=== PATIENT | female | born 1965 | race Caucasian/White ===

== ENCOUNTER 2019-09-17 15:04 | Emergency (ER) | payer BC ==
[2019-09-17] MEDS ORDERED: Ondansetron 4 MG Tab.DIS PO ONE (15:32)
--- NOTE | 2019-09-17 15:32 | EDM.PDOC ---
ED HPI GENERAL MEDICAL PROBLEM - General Stated Complaint: CHEST PAIN Time Seen by Provider: 09/17/19 15:04 Source of Information: Reports: Patient History Limitations: Reports: No Limitations - History of Present Illness INITIAL COMMENTS - FREE TEXT/NARRATIVE: Pt. presents to ER with complaints of pain beneath her L breast. She states that the discomfort started approx. 30 min prior to coming to ER. Pt. states that she went to the clinic because she was feeling clammy, slightly chilled, lightheaded, and nauseated throughout the day today. Pt. states that the discomfort feels "sharp". It is worse with palpation, and nursing noted that her L chest area was exquisitely tender when the EKG was being performed. Pt. denies any exertion. No cough. Denies any fever or chills. Pt. was doing paperwork at the onset of the discomfort. Pt. has not history of CAD. She does have a history of hypertension. She also has a history of RA. Pt. states that she has never experienced pain like this in the past. Pt. states that she also has some pain in her upper arm, but has some history of this. Constant discomfort had resolved on arrival to ER, but pain was reproducible. Onset: Today Location: Reports: Chest, Upper Extremity, Left, Generalized Quality: Reports: Ache, Sharp, Stabbing Improves with: Reports: Rest Worsens with: Reports: Movement - Related Data Allergies Allergy/AdvReac Type Severity Reaction Status Date / Time codeine Allergy Other Verified 09/17/19 15:18 ED ROS GENERAL - Review of Systems Review Of Systems: See Below Constitutional: Reports: Chills, Diaphoresis HEENT: Reports: No Symptoms Respiratory: Reports: No Symptoms, Pleuritic Chest Pain. Denies: Shortness of Breath, Cough, Sputum Cardiovascular: Reports: Chest Pain, Lightheadedness. Denies: Dyspnea on Exertion, Edema, Palpitations, PND, Syncope Endocrine: Reports: No Symptoms GI/Abdominal: Reports: Nausea : Reports: No Symptoms Musculoskeletal: Reports: Arm Pain Skin: Reports: No Symptoms Neurological: Reports: No Symptoms Psychiatric: Reports: No Symptoms Hematologic/Lymphatic: Reports: No Symptoms Immunologic: Reports: No Symptoms ED EXAM, GENERAL - Physical Exam Exam: See Below Exam Limited By: No Limitations General Appearance: Alert, WD/WN, No Apparent Distress, Anxious Eye Exam: Bilateral Eye: EOMI, PERRL Throat/Mouth: Normal Inspection, Normal Lips, Normal Teeth, No Airway Compromise Head: Atraumatic, Normocephalic Neck: Normal Inspection, Supple, Non-Tender, Full Range of Motion Respiratory/Chest: No Respiratory Distress, Lungs Clear, Normal Breath Sounds, No Accessory Muscle Use, Chest Non-Tender Cardiovascular: Normal Peripheral Pulses, Regular Rate, Rhythm, No Edema, No JVD Peripheral Pulses: 4+: Radial (R) GI/Abdominal: Soft, Non-Tender, No Organomegaly, No Distention, No Mass (Female) Exam: Deferred Rectal (Female) Exam: Deferred Back Exam: Normal Inspection, Full Range of Motion Extremities: Normal Inspection, Normal Range of Motion, Non-Tender, No Pedal Edema, Arm Pain (resolved.) Neurological: Alert, Oriented, CN II-XII Intact, Normal Cognition, Normal Reflexes, No Motor/Sensory Deficits Psychiatric: Normal Affect, Normal Mood Skin Exam: Warm, Dry, Intact, Normal Color Lymphatic: No Adenopathy Course - Orders/Labs/Meds Orders: Active Orders 24 hr Category Date Time Status EKG Documentation Completion [RC] STAT Care 09/17/19 15:19 Active Chest 2V [CR] Stat Exams 09/17/19 15:19 Taken Labs: Laboratory Tests 09/17/19 09/17/19 09/17/19 Range/Units 15:37 15:37 15:37 WBC 7.9 (4.0-10.0) x10^3/uL RBC 4.75 (4.00-5.50) x10^6/uL Hgb 12.3 (12.0-16.0) g/dL Hct 39.4 (33.0-47.0) % MCV 82.9 (78.0-93.0) fL MCH 25.9 L (26.0-32.0) pg MCHC 31.2 L (32.0-36.0) g/dL RDW Coeff of Andrae 16.3 H (10.0-15.0) % Plt Count 425 H (130-400) x10^3/uL Neut % (Auto) 62.3 (50.0-80.0) % Lymph % (Auto) 27.0 (25.0-50.0) % [place] % (Auto) 8.4 (2.0-11.0) % Eos % (Auto) 2.0 (0.0-4.0) % Baso % (Auto) 0.3 (0.2-1.2) % PT 8.9 L (9.5-12.3) SEC INR 0.8 L (2.0-3.5) D-Dimer, Quantitative 0.55 (<=0.58) mg/LFEU Sodium 141 (136-145) mmol/L Potassium 3.7 (3.5-5.1) mmol/L Chloride 103 (98-107) mmol/L Carbon Dioxide 32 (21-32) mmol/L Anion Gap 9.7 L (10-20) mmol/L BUN 12 (7-18) mg/dL Creatinine 1.0 (0.55-1.02) mg/dL Est Cr Clr Drug Dosing TNP Estimated GFR (MDRD) 58 Glucose 69 L (74-106) mg/dL Calcium 8.2 L (8.5-10.1) mg/dL Corrected Calcium 8.36 L (8.5-10.1) mg/dL Total Bilirubin 0.8 (0.2-1.0) mg/dL AST 25 (15-37) U/L ALT 40 (14-59) U/L Alkaline Phosphatase 163 H (46-116) U/L Troponin I < 0.017 (<=0.056) ng/mL Total Protein 7.6 (6.4-8.2) g/dL Albumin 3.8 (3.4-5.0) g/dL Globulin 3.8 Albumin/Globulin Ratio 1.00 Meds: Medications Discontinued Medications Generic Name Dose Route Start Last Admin Trade Name Freq PRN Reason Stop Dose Admin Ibuprofen 600 mg 09/17/19 15:33 09/17/19 15:37 Motrin PO 09/17/19 15:34 600 mg ONETIME ONE Administration Ondansetron HCl 4 mg 09/17/19 15:32 09/17/19 15:37 Zofran Odt PO 09/17/19 15:33 4 mg ONETIME ONE Administration - Radiology Interpretation Free Text/Narrative:: chest x-ray negative Departure - Departure Time of Disposition: 16:18 Disposition: Home, Self-Care 01 Clinical Impression: Atypical chest pain - Discharge Information Instructions: Nonspecific Chest Pain, Adult, [id number] Referrals: Rochelle Joseph MD [Primary Care Provider] - Forms: ED Department Discharge Additional Instructions: The cause of the discomfort is likely secondary to your RA, such as costochondritis Prednisone 40mg once daily For your nausea, zofran ODT 4mg every 6-8 hours as needed. Recheck in clinic in 10-14 days, sooner if not gradually improving. - My Orders Last 24 Hours: My Active Orders 09/17/19 15:19 EKG Documentation Completion [RC] STAT Chest 2V [CR] Stat - Assessment/Plan Last 24 Hours: My Active Orders 09/17/19 15:19 EKG Documentation Completion [RC] STAT Chest 2V [CR] Stat Plan: The cause of the discomfort is likely secondary to your RA, such as costochondritis Prednisone 40mg once daily For your nausea, zofran ODT 4mg every 6-8 hours as needed. Recheck in clinic in 10-14 days, sooner if not gradually improving.
[2019-09-17] MEDS ORDERED: Ibuprofen 200 MG Tab PO ONE (15:33)
[2019-09-17 16:02] LABS: ANION GAP 9.7 mmol/L (10-20); CHLORIDE,CL 103 mmol/L (98-107); SODIUM,NA 141 mmol/L (136-145)
--- NOTE | 2019-09-18 08:20 | CR ---
[id number] RAD/RAD Chest PA And Lateral EXAM: RAD Chest PA And Lateral CLINICAL DATA: SYNCOPE BRADYCARDIA COMPARISON: NO PREVIOUS SIMILAR EXAM IS AVAILABLE. FINDINGS: The lungs are clear. The cardiomediastinal contour is moderately prominent. The regional bones and soft tissues are unremarkable. IMPRESSION: NO ACUTE PROCESS. Jose Jenkins MD 09/18/19 0819 Thank you for allowing us to participate in the care of your patient.
== END 2019-09-17 16:21 | disposition home or self-care (01) ==
LOC: VM.ED 15:04
DX: R07.89 Other chest pain (principal); I10 Essential (primary) hypertension; Z88.5 Allergy status to narcotic agent
CPT/HCPCS: 36415; 71046; 80053; 84484; 85025; 85379; 85610; 93005; 99285-25; A9270-GY

== ENCOUNTER 2021-09-02 10:00 | Inpatient (IN) | payer BC ==
[2021-09-02] MEDS ORDERED: Lactated Ringers 1,000 ML IV ONE (10:39)
[2021-09-02] MEDS: Sodium Chloride 0.9% 10 ML Syringe FLUSH PRN (11:09)
[2021-09-02 11:33] LABS: PTT,PARTIAL THROMBOPLSTIN TIME 25.7 SEC (20.5-30.9)
[2021-09-02 11:46] LABS: CHLORIDE,CL 104 mmol/L (98-107); SODIUM,NA 144 mmol/L (136-145)
[2021-09-02 11:47] LABS: ANION GAP 17.9 mmol/L (5-15); ESTIMATED GFR 101 mL/min (>=60)
[2021-09-02] MEDS ORDERED: Iopamidol 612 MG/ML 100 ML Bottle IVPUSH ONE (11:50)
[2021-09-02] MEDS ORDERED: Potassium Chloride Riders 20 MEQ in Premix Bag 1 BAG IV ONE (12:19)
[2021-09-02] MEDS ORDERED: Piperacillin/Tazobactam 3.375 GM in Sodium Chloride 0.9% 100 ML IV ONE (12:53)
[2021-09-02] MEDS ORDERED: Sodium Chloride 0.9% 100 ML ONE (13:19)
[2021-09-02] MEDS ORDERED: Acetaminophen 500 MG Tab PO ONE (14:00)
[2021-09-02] MEDS ORDERED: Ondansetron 4 MG/2 ML SDV IV PRN (15:30)
[2021-09-02] MEDS ORDERED: Ondansetron 4 MG Tab.DIS PO PRN (15:30)
[2021-09-02] MEDS: Heparin Sodium 5,000 Units/ML Vial SUBCUT SCH (16:32)
[2021-09-02] MEDS: DULoxetine 60 MG Cap PO SCH (20:34)
[2021-09-02] MEDS: Famotidine 20 MG Tab PO SCH (20:34)
[2021-09-03] MEDS: Heparin Sodium 5,000 Units/ML Vial SUBCUT SCH ×4 (00:55→23:24)
[2021-09-03] MEDS: Sodium Chloride 0.9% 10 ML Syringe FLUSH PRN ×2 (00:56→19:57)
[2021-09-03] MEDS: Acetaminophen 325 MG Tab PO PRN ×3 (04:05→19:58)
[2021-09-03 06:40] LABS: ANION GAP 12.8 mmol/L (5-15)
[2021-09-03] MEDS: amLODIPine 5 MG Tab PO SCH (08:20)
[2021-09-03] MEDS: Omeprazole 20 MG Cap.CR PO SCH (08:21)
[2021-09-03] MEDS: cefTRIAXone 1 GM Vial IVPUSH SCH (08:21)
[2021-09-03] MEDS ORDERED: traMADol 50 MG Tab PO PRN (08:37)
[2021-09-03] MEDS ORDERED: Polyethylene Glycol 3350 Powder 17 GM Packet PO PRN (08:38)
[2021-09-03] MEDS: DULoxetine 60 MG Cap PO SCH (20:00)
[2021-09-03] MEDS: Famotidine 20 MG Tab PO SCH (20:00)
[2021-09-03] MEDS ORDERED: Gabapentin 300 MG Cap PO ONE (22:58)
[2021-09-03] MEDS: Sodium Chloride 0.9% 1,000 ML IV SCH (23:17)
[2021-09-04] MEDS: Acetaminophen 325 MG Tab PO PRN ×4 (01:45→22:13)
[2021-09-04 08:08] LABS: ANION GAP 10.3 mmol/L (5-15)
[2021-09-04] MEDS: cefTRIAXone 1 GM Vial IVPUSH SCH (08:23)
[2021-09-04] MEDS: amLODIPine 5 MG Tab PO SCH (08:24)
[2021-09-04] MEDS: Heparin Sodium 5,000 Units/ML Vial SUBCUT SCH ×2 (08:24→16:23)
[2021-09-04] MEDS: Omeprazole 20 MG Cap.CR PO SCH (08:24)
[2021-09-04] MEDS: Sodium Chloride 0.9% 1,000 ML IV SCH ×2 (08:40→18:20)
[2021-09-04] MEDS ORDERED: Potassium Chloride 20 MEQ Tab.ER PO ONE ×2 (12:00→16:45)
[2021-09-04] MEDS ORDERED: Iopamidol 612 MG/ML 100 ML Bottle IVPUSH ONE (12:08)
[2021-09-04] MEDS: TRULANCE 3 MG PO SCH (19:56)
[2021-09-04] MEDS: Amoxicillin/Clavulanate K 875-125 MG Tab PO SCH (20:00)
[2021-09-04] MEDS: Famotidine 20 MG Tab PO SCH (20:01)
[2021-09-04] MEDS: DULoxetine 60 MG Cap PO SCH (20:01)
[2021-09-04] MEDS ORDERED: Gabapentin 300 MG Cap PO SCH (21:00)
[2021-09-05] MEDS: Heparin Sodium 5,000 Units/ML Vial SUBCUT SCH ×2 (00:33→08:00)
[2021-09-05] MEDS: Acetaminophen 325 MG Tab PO PRN ×2 (02:18→06:23)
[2021-09-05] MEDS: Sodium Chloride 0.9% 1,000 ML IV SCH (02:23)
[2021-09-05] MEDS: Omeprazole 20 MG Cap.CR PO SCH (08:00)
[2021-09-05] MEDS: amLODIPine 5 MG Tab PO SCH (08:00)
[2021-09-05] MEDS: Amoxicillin/Clavulanate K 875-125 MG Tab PO SCH ×2 (08:00→11:28)
[2021-09-05] MEDS: TRULANCE 3 MG PO SCH (08:01)
== END 2021-09-05 12:17 | disposition home or self-care (01) | DRG 721 ==
LOC: VM.ED 10:00 → VM.MS 14:53
PROVIDERS: ADMIT Family Medicine; ATTEND Family Medicine
DX: T81.49XA Infection following a procedure, other surgical site, initial encounter (principal); T81.44XA Sepsis following a procedure, initial encounter; E87.6 Hypokalemia; F32.A Depression, unspecified; L02.211 Cutaneous abscess of abdominal wall; A41.9 Sepsis, unspecified organism; Z66 Do not resuscitate; F41.9 Anxiety disorder, unspecified; M79.7 Fibromyalgia; K21.9 Gastro-esophageal reflux disease without esophagitis; I10 Essential (primary) hypertension; G25.81 Restless legs syndrome; E78.5 Hyperlipidemia, unspecified; E66.9 Obesity, unspecified; M06.9 Rheumatoid arthritis, unspecified; M19.90 Unspecified osteoarthritis, unspecified site; G43.909 Migraine, unspecified, not intractable, without status migrainosus; R73.01 Impaired fasting glucose; R07.89 Other chest pain; E78.00 Pure hypercholesterolemia, unspecified; Y83.8 Other surgical procedures as the cause of abnormal reaction of the patient, or of later complication, without mention of misadventure at the time of the procedure; Z90.710 Acquired absence of both cervix and uterus; Z98.51 Tubal ligation status; Y92.89 Other specified places as the place of occurrence of the external cause; Z88.2 Allergy status to sulfonamides; Z88.8 Allergy status to other drugs, medicaments and biological substances; Z86.010 Personal history of colon polyps
CPT/HCPCS: 36415; 71045; 74177; 80048; 80053; 81001; 83605; 83735; 84100; 84484; 85025; 85027; 85610; 85730; 86140; 87040; 93005; 93010; 96361; 96365; 96368; 99284; 99285-25; A9270-GY; J0696; J1644; J2543; J3370; J3480; J3490; J7030; J7050; J7120; Q9967